=== PATIENT | male | born 1935 | race Caucasian/White ===

== ENCOUNTER → 2016-08-11 | Outpatient (REF) | payer MEDICARE, OTHER ==
[2016-08-11 12:20] LABS: ANION GAP 7 MEQ/L (8-16); BLOOD UREA NITROGEN 17 MG/DL (7-18); CALCIUM LEVEL 8.7 MG/DL (8.8-10.2); CARBON DIOXIDE LEVEL 32 MEQ/L (21-32); CHLORIDE LEVEL 101 MEQ/L (98-107); CREATININE FOR GFR 1.04 MG/DL (0.70-1.30); GLOMERULAR FILTRATION RATE > 60.0 (>42); GLUCOSE, FASTING 142 MG/DL (83-110); POTASSIUM SERUM 3.8 MEQ/L (3.5-5.1); SODIUM LEVEL 140 MEQ/L (136-145)
== END ==
LOC: M SFHCCLAY 07:36
PROVIDERS: ATTEND Family Medicine
DX: E11.9 Type 2 diabetes mellitus without complications (principal); I10 Essential (primary) hypertension; I25.10 Atherosclerotic heart disease of native coronary artery without angina pectoris

== ENCOUNTER → 2016-08-13 | Outpatient (REF) | payer MEDICARE, OTHER ==
[2016-08-13 11:43] LABS: FOLATE > 24.0 NG/ML (>5.4); VITAMIN B12 LEVEL 595 PG/ML (247-911)
== END ==
LOC: M SFHCCLAY 08:45
PROVIDERS: ATTEND Family Medicine
DX: E11.9 Type 2 diabetes mellitus without complications (principal); G63 Polyneuropathy in diseases classified elsewhere

== ENCOUNTER → 2016-08-13 | Outpatient (CLI) | payer MEDICARE, OTHER ==
--- NOTE | 2016-08-13 13:09 | REP ---
LUMBOSACRAL SPINE: Five views of the lumbosacral spine performed. There is no compression fracture. There is no spondylolysis. There is mild anterior spondylolisthesis of L4 and L5 due to posterior facet arthropathy. There is mild to moderate diffuse spurring. There is mild disc space narrowing and subchondral sclerosis at all levels. The posterior elements are intact. IMPRESSION: Diffuse degenerative changes.
== END ==
LOC: M CLY 09:18
PROVIDERS: ATTEND Family Medicine
DX: M51.36 Other intervertebral disc degeneration, lumbar region (principal); E11.9 Type 2 diabetes mellitus without complications; E88.9 Metabolic disorder, unspecified; G63 Polyneuropathy in diseases classified elsewhere; I10 Essential (primary) hypertension

== ENCOUNTER → 2016-10-25 | Outpatient (CLI) | payer MEDICARE, OTHER ==
--- NOTE | 2016-10-25 11:01 | REP ---
CERVICAL SPINE, EIGHT VIEWS: HISTORY: Neck pain. The cervical spine is visualized from C1-2 to C6-7 level in the lateral radiographs. There is no acute fracture. The C3-4 through C6-7 intervertebral discs are decreased in height consistent with disc degeneration. Osteophytes are present on C3-7. There is narrowing of the C3-6 neural foramina secondary to uncinate process hypertrophy. There are 3 mm of anterior subluxation of C4 on 5. This is unchanged with flexion and reduces to 1.5 mm with extension. IMPRESSION: Degenerative change as described above.
== END ==
LOC: M CLY 10:07
PROVIDERS: ATTEND Nurse Practitioner
DX: M50.31 Other cervical disc degeneration, high cervical region (principal); M50.321 Other cervical disc degeneration at C4-C5 level; M50.322 Other cervical disc degeneration at C5-C6 level; M50.323 Other cervical disc degeneration at C6-C7 level; M79.1 Myalgia
CPT/HCPCS: 72050; 82550; 85652; 86431; G0463

== ENCOUNTER → 2016-10-25 | Outpatient (REF) | payer MEDICARE, OTHER | LOC: M SFHCCLAY 09:48 | PROVIDERS: ATTEND Nurse Practitioner | DX: M79.1 Myalgia (principal) ==

== ENCOUNTER → 2016-11-11 | Outpatient (REF) | payer MEDICARE, OTHER | LOC: M SFHCCLAY 15:33 | PROVIDERS: ATTEND Family Medicine | DX: M62.81 Muscle weakness (generalized) (principal) ==

== ENCOUNTER → 2016-11-12 | Outpatient (REF) | payer MEDICARE, OTHER ==
[2016-11-13 14:10] LABS: PSA TOTAL 2.6 ng/mL (0.0-4.0)
[2016-11-17 00:06] LABS: ACETYLCHOLINE RCPTOR BINDING A < 0.03 nmol/L (0.00-0.24)
== END ==
LOC: M SFHCCLAY 07:09
PROVIDERS: ATTEND Family Medicine
DX: M62.81 Muscle weakness (generalized) (principal); Z12.5 Encounter for screening for malignant neoplasm of prostate

== ENCOUNTER → 2016-11-15 | Outpatient (CLI) | payer MEDICARE, OTHER ==
--- NOTE | 2016-11-15 18:28 | REP ---
MRI CERVICAL SPINE WITHOUT CONTRAST: HISTORY: Neck pain. A disc bulge is present at the C2-3 level. There is minimal effacement of the thecal sac without spinal cord compression. The C2 neural foramina are patent. A disc bulge is present at the C3-4 level. There is minimal effacement of the thecal sac without spinal cord compression. Bilateral uncinate process and left facet hypertrophy are present. These findings produce moderate narrowing of the C3 neural foramina. A disc bulge is present at the C4-5 level. There is minimal effacement of the thecal sac without spinal cord compression. Bilateral uncinate process hypertrophy is present. This produces moderate and mild narrowing of the right and left C4 neural foramina respectively. A disc bulge with associated osteophyte formation is present at the C5-6 level. There is mild effacement of the thecal sac without spinal cord compression. Bilateral uncinate process hypertrophy is present. This produces moderate narrowing of the C5 neural foramina. A disc bulge with associated osteophyte formation is present at the C6-7 level. There is mild effacement of the thecal sac without spinal cord compression. Bilateral uncinate process hypertrophy is present. This produces moderate and mild narrowing of the right and left C6 neural foramina respectively. A disc bulge is present at the C7-T1 level. There is mild effacement of the thecal sac without spinal cord compression. The C7 neural foramina are patent. There is no other disc bulge or herniation. The remaining neural foramina are patent. The spinal cord is normal in signal intensity. The C2-3 through C6-7 intervertebral discs are decreased in height consistent with disc degeneration. Normal signal intensity is present in the cervical vertebral bodies. IMPRESSION: There is cervical spondylosis at the C2-3 through C7-T1 levels without spinal cord compression. Signed by Sukhwinder Franco MD 11/15/2016 06:35 P
== END ==
LOC: M RAD 16:26
PROVIDERS: ATTEND Family Medicine
DX: M62.81 Muscle weakness (generalized) (principal); M43.12 Spondylolisthesis, cervical region; M50.21 Other cervical disc displacement, high cervical region

== ENCOUNTER → 2016-11-30 | Outpatient (REF) | payer MEDICARE, OTHER ==
[2016-11-30 15:22] LABS: ALBUMIN 3.7 GM/DL (3.2-5.2); ALBUMIN/GLOBULIN RATIO 1.28 (1.00-1.93); ALKALINE PHOSPHATASE 59 U/L (45-117); ALT/SGPT 25 U/L (12-78); ANION GAP 7 MEQ/L (8-16); AST/SGOT 24 U/L (15-37); BILIRUBIN,TOTAL 0.5 MG/DL (0.2-1.0); BLOOD UREA NITROGEN 20 MG/DL (7-18); CALCIUM LEVEL 8.7 MG/DL (8.8-10.2); CARBON DIOXIDE LEVEL 31 MEQ/L (21-32); CHLORIDE LEVEL 104 MEQ/L (98-107); CREATININE FOR GFR 1.02 MG/DL (0.70-1.30); GLOMERULAR FILTRATION RATE > 60.0 (>42); GLUCOSE, FASTING 131 MG/DL (83-110); POTASSIUM SERUM 3.9 MEQ/L (3.5-5.1); SODIUM LEVEL 142 MEQ/L (136-145); TOTAL PROTEIN 6.6 GM/DL (6.4-8.2)
[2016-12-02 12:09] LABS: ALBUMIN 3.96 GM/DL (3.29-5.55); GAMMA GLOBULIN % 13.6 % (11.1-18.8)
[2016-12-03 14:14] LABS: VITAMIN E LEVEL 12.5 mg/L (5.3-17.5)
== END ==
LOC: M LABDRAWC 13:19
PROVIDERS: ATTEND Psychiatry & Neurology Neurology
DX: G62.9 Polyneuropathy, unspecified (principal); R20.2 Paresthesia of skin; R53.1 Weakness

== ENCOUNTER → 2016-12-22 | Outpatient (REF) | payer MEDICARE, OTHER ==
[2016-12-26 00:06] LABS: Lyme Disease IgG Ab 18 kDa Ban Present (.); Lyme Disease IgG Ab 23 kDa Ban Present (.); Lyme Disease IgG Ab 28 kDa Ban Present (.); Lyme Disease IgG Ab 30 kDa Ban Present (.); Lyme Disease IgG Ab 39 kDa Ban Present (.); Lyme Disease IgG Ab 41 kDa Ban Present (.); Lyme Disease IgG Ab 45 kDa Ban Present (.); Lyme Disease IgG Ab 58 kDa Ban Present (.); Lyme Disease IgG Ab 66 kDa Ban Present (.); Lyme Disease IgG Ab 93 kDa Ban Present (.); Lyme Disease IgG West Blot Int Positive (.); Lyme Disease IgG/IgM Antibodie 5.51 ISR (0.00-0.90); Lyme Disease IgM Ab 23 kDa Ban Present (.); Lyme Disease IgM Ab 39 kDa Ban Absent (.); Lyme Disease IgM Ab 41 kDa Ban Absent (.); Lyme Disease IgM Ab Quantitati <0.80 index (0.00-0.79); Lyme Disease IgM West Blot Int Negative (.)
== END ==
LOC: M SFHCCLAY 13:32
PROVIDERS: ATTEND Family Medicine
DX: Z20.9 Contact with and (suspected) exposure to unspecified communicable disease (principal)
CPT/HCPCS: 86617; G0463

== ENCOUNTER → 2017-01-27 | Outpatient (CLI) | payer MEDICARE, OTHER ==
--- NOTE | 2017-01-27 13:58 | REP ---
BILATERAL LOWER EXTREMITY DUPLEX DOPPLER VENOUS ULTRASOUND WITH BILATERAL EVALUATION FOR VENOUS REFLUX: Real-time compression and duplex Doppler interrogation of bilateral lower extremity deep venous systems is performed. Bilaterally, common femoral, superficial femoral and popliteal veins are fully compressible with transducer pressure and demonstrate normal spontaneous and phasic flow without evidence of deep venous thrombosis. Evaluation for venous reflux on the right demonstrates reflux throughout the deep vein system. There is an anterior accessory greater saphenous vein present without reflux. There is reflux in the greater saphenous vein at the saphenofemoral junction, which measures 4 mm in diameter, duration is 4.9 seconds. There is reflux in the greater saphenous vein at the mid thigh level with diameter 2 mm, duration 4.8 seconds. There is reflux in the greater saphenous of the knee, which measures 2 mm, duration 1.4 seconds. There is no reflux in the lesser saphenous vein with a diameter of 3 mm. Evaluation of reflux in the left lower extremity demonstrates reflux in the common femoral vein and popliteal vein but not in the superficial femoral vein. There is an anterior accessory greater saphenous vein present without reflux. There is reflux in the greater saphenous vein at the saphenofemoral junction, which measures 5 mm, duration is 3.9 seconds. There is reflux in the greater saphenous vein at the mid thigh level AP diameter 5 mm, duration is 4.9 seconds, there is on reflux in the greater saphenous vein at the knee with a diameter of 3 mm. There is no reflux in the lesser saphenous vein with a diameter of 2 mm. Signed by Keith Jones MD 01/27/2017 05:35 P
== END ==
LOC: M RAD 10:49
PROVIDERS: ATTEND Surgery Vascular Surgery
DX: I87.2 Venous insufficiency (chronic) (peripheral) (principal); I73.9 Peripheral vascular disease, unspecified

== ENCOUNTER → 2017-09-01 | Outpatient (REF) | payer MEDICARE, OTHER ==
[2017-09-01 12:43] LABS: ALT/SGPT 17 U/L (12-78); ANION GAP 6 MEQ/L (8-16); BLOOD UREA NITROGEN 16 MG/DL (7-18); CALCIUM LEVEL 8.4 MG/DL (8.8-10.2); CARBON DIOXIDE LEVEL 31 MEQ/L (21-32); CHLORIDE LEVEL 102 MEQ/L (98-107); CHOLESTEROL LEVEL 216 MG/DL (<200); CHOLESTEROL RISK RATIO 6.171 (<5); CREATININE FOR GFR 0.89 MG/DL (0.70-1.30); GLOMERULAR FILTRATION RATE > 60.0 (>42); GLUCOSE, FASTING 113 MG/DL (70-100); HDL CHOLESTEROL 35 MG/DL (>40); NON-HDL-C 181 MG/DL; POTASSIUM SERUM 4.2 MEQ/L (3.5-5.1); SODIUM LEVEL 139 MEQ/L (136-145); TRIGLYCERIDES LEVEL 190 MG/DL (<150)
[2017-09-01 13:12] LABS: ESTIMATED AVERAGE GLUCOSE 123 MG/DL (60-110); HEMOGLOBIN A1c 5.9 %
== END ==
LOC: M SFHCCLAY 08:41
DX: E11.40 Type 2 diabetes mellitus with diabetic neuropathy, unspecified (principal)
CPT/HCPCS: 84460

== ENCOUNTER → 2018-01-12 | Outpatient (REF) | payer MEDICARE, OTHER ==
[2018-01-12 12:02] LABS: ESTIMATED AVERAGE GLUCOSE 134 MG/DL (60-110); HEMOGLOBIN A1c 6.3 %
[2018-01-12 12:23] LABS: ALBUMIN 3.8 GM/DL (3.2-5.2); ALBUMIN/GLOBULIN RATIO 1.46 (1.00-1.93); ALKALINE PHOSPHATASE 46 U/L (45-117); ALT/SGPT 17 U/L (12-78); ANION GAP 9 MEQ/L (8-16); AST/SGOT 14 U/L (7-37); BILIRUBIN,TOTAL 0.6 MG/DL (0.2-1.0); BLOOD UREA NITROGEN 22 MG/DL (7-18); CALCIUM LEVEL 8.7 MG/DL (8.8-10.2); CARBON DIOXIDE LEVEL 31 MEQ/L (21-32); CHLORIDE LEVEL 102 MEQ/L (98-107); CHOLESTEROL LEVEL 128 MG/DL (<200); CHOLESTEROL RISK RATIO 3.657 (<5); GLOMERULAR FILTRATION RATE > 60.0 (>35); GLUCOSE, FASTING 116 MG/DL (70-100); HDL CHOLESTEROL 35 MG/DL (>40); LDL CHOLESTEROL 62 MG/DL (<100); NON-HDL-C 93 MG/DL; POTASSIUM SERUM 4.2 MEQ/L (3.5-5.1); SODIUM LEVEL 142 MEQ/L (136-145); TOTAL PROTEIN 6.4 GM/DL (6.4-8.2); TRIGLYCERIDES LEVEL 154 MG/DL (<150)
== END ==
LOC: M SFHCCLAY 07:25
DX: E11.40 Type 2 diabetes mellitus with diabetic neuropathy, unspecified (principal)
CPT/HCPCS: 80053

== ENCOUNTER → 2018-01-19 | Outpatient (CLI) | payer MEDICARE, OTHER | LOC: M CLY 10:17 | DX: M79.652 Pain in left thigh (principal); M16.12 Unilateral primary osteoarthritis, left hip | CPT/HCPCS: 73502 ==

== ENCOUNTER → 2018-01-27 | Outpatient (CLI) | payer MEDICARE, OTHER | LOC: M RAD 16:50 | DX: M48.061 Spinal stenosis, lumbar region without neurogenic claudication (principal) | CPT/HCPCS: 72148 ==

== ENCOUNTER → 2018-08-01 | Outpatient (REF) | payer MEDICARE, OTHER ==
[2018-08-02 12:28] LABS: BLOOD UREA NITROGEN 16 MG/DL (7-18); CALCIUM LEVEL 8.9 MG/DL (8.8-10.2); CARBON DIOXIDE LEVEL 27 MEQ/L (21-32); CHLORIDE LEVEL 105 MEQ/L (98-107); CREATININE FOR GFR 0.86 MG/DL (0.70-1.30); GLOMERULAR FILTRATION RATE > 60.0 (>35); GLUCOSE, FASTING 111 MG/DL (70-100); POTASSIUM SERUM 4.2 MEQ/L (3.5-5.1); SODIUM LEVEL 142 MEQ/L (136-145)
[2018-08-02 12:59] LABS: HEMOGLOBIN A1c 6.7 %
== END ==
LOC: M SFHCCLAY 14:25
PROVIDERS: ATTEND Family Medicine
DX: L03.818 Cellulitis of other sites (principal); E11.40 Type 2 diabetes mellitus with diabetic neuropathy, unspecified
CPT/HCPCS: 80048; 83036; G0463

== ENCOUNTER → 2018-10-23 | Outpatient (REF) | payer MEDICARE, OTHER | LOC: M LABSMT 13:26 | PROVIDERS: ATTEND Urology Pediatric Urology | DX: N48.5 Ulcer of penis (principal) ==

== ENCOUNTER → 2018-10-23 | Outpatient (CLI) | payer MEDICARE, OTHER ==
[2018-10-25 00:06] LABS: HSV IgM TYPES 1&2 <0.91 Ratio (0.00-0.90)
== END ==
LOC: M SMT 09:54
PROVIDERS: ATTEND Urology Pediatric Urology
DX: N48.5 Ulcer of penis (principal)
CPT/HCPCS: 36415; 86694; G0463

== ENCOUNTER → 2019-01-09 | Outpatient (REF) | payer MEDICARE, OTHER ==
[2019-01-09 17:10] LABS: ALBUMIN 3.8 GM/DL (3.2-5.2); ALT/SGPT 17 U/L (12-78); BILIRUBIN,TOTAL 0.9 MG/DL (0.2-1.0); BLOOD UREA NITROGEN 18 MG/DL (7-18); CARBON DIOXIDE LEVEL 32 MEQ/L (21-32); CHLORIDE LEVEL 99 MEQ/L (98-107); CHOLESTEROL LEVEL 136 MG/DL (<200); CREATININE FOR GFR 1.03 MG/DL (0.70-1.30); GLOMERULAR FILTRATION RATE > 60.0 (>35); GLUCOSE, FASTING 121 MG/DL (70-100); HDL CHOLESTEROL 40 MG/DL (>40); LDL CHOLESTEROL 66 MG/DL (<100); NON-HDL-C 96 MG/DL; POTASSIUM SERUM 4.1 MEQ/L (3.5-5.1); SODIUM LEVEL 137 MEQ/L (136-145); TOTAL PROTEIN 6.6 GM/DL (6.4-8.2); TRIGLYCERIDES LEVEL 148 MG/DL (<150)
[2019-01-09 17:12] LABS: HEMATOCRIT 45.7 % (42.0-52.0); HEMOGLOBIN 15.2 g/dl (13.5-17.5); MEAN CORPUSCULAR HGB CONC 33.3 g/dl (32.0-36.5); MEAN CORPUSCULAR VOLUME 93.1 fl (80.0-96.0); PLATELET COUNT, AUTOMATED 190 10^3/uL (150-450); RED BLOOD COUNT 4.91 10^6/uL (4.30-6.10); WHITE BLOOD COUNT 7.2 10^3/uL (4.0-10.0)
[2019-01-09 17:26] LABS: CREATININE, URINE 99.8 MG/DL; MALB URINE SIEMENS 6.4 MG/L; MAU/CREAT RATIO 6.4 MCG/MG (0.0-30.0)
== END ==
LOC: M SFHCCLAY 10:20
PROVIDERS: ATTEND Family Medicine
DX: E11.9 Type 2 diabetes mellitus without complications (principal); G63 Polyneuropathy in diseases classified elsewhere; I25.10 Atherosclerotic heart disease of native coronary artery without angina pectoris; I77.810 Thoracic aortic ectasia

== ENCOUNTER → 2020-01-17 | Outpatient (REF) | payer MEDICARE, OTHER ==
[2020-01-17 16:17] LABS: APPEARANCE, URINE CLEAR (CLEAR); BACTERIA, URINE AUTO NEGATIVE (NEGATIVE); BILIRUBIN, URINE AUTO NEGATIVE (NEGATIVE); BLOOD, URINE BLOOD NEGATIVE (NEGATIVE); COLOR, URINE YELLOW (YELLOW); GLUCOSE, URINE (UA) AUTO NEGATIVE (NEGATIVE); HEMOGLOBIN A1c 6.1 %; KETONE, URINE AUTO NEGATIVE (NEGATIVE); LEUKOCYTE ESTERASE, URINE AUTO NEGATIVE (NEGATIVE); NITRITE, URINE AUTO NEGATIVE (NEGATIVE); PROTEIN, URINE AUTO NEGATIVE (NEGATIVE); RBC, URINE AUTO 1 /HPF (0-3); SPECIFIC GRAVITY URINE AUTO 1.011 (1.002-1.035); SQUAMOUS EPITHELIAL CELL UR AU 0 /HPF (0-6); UROBILINOGEN, URINE AUTO 0.2 mg/dL (0.0-2.0); WBC, URINE AUTO 0 /HPF (0-3)
[2020-01-17 16:29] LABS: ALT/SGPT 14 U/L (12-78); BILIRUBIN,TOTAL 0.7 MG/DL (0.2-1.0); BLOOD UREA NITROGEN 20 MG/DL (7-18); CARBON DIOXIDE LEVEL 32 MEQ/L (21-32); CHLORIDE LEVEL 101 MEQ/L (98-107); CHOLESTEROL LEVEL 138 MG/DL (<200); CREATININE FOR GFR 0.88 MG/DL (0.70-1.30); GLOMERULAR FILTRATION RATE > 60.0 (>35); GLUCOSE, FASTING 116 MG/DL (70-100); HDL CHOLESTEROL 40 MG/DL (>40); LDL CHOLESTEROL 73 MG/DL (<100); NON-HDL-C 98 MG/DL; POTASSIUM SERUM 4.1 MEQ/L (3.5-5.1); SODIUM LEVEL 136 MEQ/L (136-145); TRIGLYCERIDES LEVEL 125 MG/DL (<150)
[2020-01-17 16:30] LABS: ALBUMIN 3.5 GM/DL (3.2-5.2); TOTAL PROTEIN 6.6 GM/DL (6.4-8.2)
[2020-01-17 16:40] LABS: CREATININE, URINE 59.1 MG/DL; MALB URINE SIEMENS < 5.0 MG/L; MAU/CREAT RATIO 8.4 MCG/MG (0.0-30.0)
== END ==
LOC: M SFHCCLAY 10:37
PROVIDERS: ATTEND Family Medicine
DX: E11.40 Type 2 diabetes mellitus with diabetic neuropathy, unspecified (principal)
CPT/HCPCS: 80053; 80061; 81001; 82043; 83036; G8483

== ENCOUNTER → 2020-08-15 | Outpatient (REF) | payer MEDICARE, OTHER ==
[2020-08-15 17:18] LABS: ALBUMIN 3.8 GM/DL (3.2-5.2); ALT/SGPT 19 U/L (12-78); BILIRUBIN,TOTAL 0.6 MG/DL (0.2-1.0); BLOOD UREA NITROGEN 18 MG/DL (7-18); CALCIUM LEVEL 9.3 MG/DL (8.8-10.2); CARBON DIOXIDE LEVEL 32 MEQ/L (21-32); CHLORIDE LEVEL 101 MEQ/L (98-107); CHOLESTEROL LEVEL 160 MG/DL (<200); GLOMERULAR FILTRATION RATE > 60.0 (>35); GLUCOSE, FASTING 120 MG/DL (70-100); HDL CHOLESTEROL 43 MG/DL (>40); LDL CHOLESTEROL 80 MG/DL (<100); NON-HDL-C 117 MG/DL; POTASSIUM SERUM 4.3 MEQ/L (3.5-5.1); SODIUM LEVEL 139 MEQ/L (136-145); TOTAL PROTEIN 6.5 GM/DL (6.4-8.2); TRIGLYCERIDES LEVEL 186 MG/DL (<150); VITAMIN B12 LEVEL 922 PG/ML (247-911)
[2020-08-15 17:19] LABS: HEMOGLOBIN A1c 6.1 %
== END ==
LOC: M SFHCCLAY 10:36
PROVIDERS: ATTEND Family Medicine
DX: E53.8 Deficiency of other specified B group vitamins (principal); I25.10 Atherosclerotic heart disease of native coronary artery without angina pectoris; I10 Essential (primary) hypertension; E11.40 Type 2 diabetes mellitus with diabetic neuropathy, unspecified
CPT/HCPCS: 80053; 80061; 82607; 83036; G0463

== ENCOUNTER → 2020-09-02 | Outpatient (REF) | payer MEDICARE, OTHER ==
[2020-09-03 12:59] LABS: FREE T4 1.19 NG/DL (0.76-1.46); THYROID STIMULATING HORMONE 2.11 uIU/ML (0.358-3.740)
== END ==
LOC: M SFHCCLAY 14:18
PROVIDERS: ATTEND Physician Assistant
DX: F41.8 Other specified anxiety disorders (principal)
CPT/HCPCS: 84439; 84443; G0463

== ENCOUNTER → 2021-01-15 | Outpatient (REF) | payer MEDICARE, OTHER ==
[2021-01-15 12:39] LABS: CHOLESTEROL RISK RATIO 3.674 (<5)
[2021-01-15 14:16] LABS: ALBUMIN 3.6 GM/DL (3.2-5.2); ALT/SGPT 20 U/L (12-78); BILIRUBIN,TOTAL 0.7 MG/DL (0.2-1.0); BLOOD UREA NITROGEN 24 MG/DL (7-18); CALCIUM LEVEL 9.1 MG/DL (8.8-10.2); CARBON DIOXIDE LEVEL 31 MEQ/L (21-32); CHLORIDE LEVEL 99 MEQ/L (98-107); CREATININE FOR GFR 1.02 MG/DL (0.70-1.30); GLOMERULAR FILTRATION RATE > 60.0 (>35); GLUCOSE, FASTING 119 MG/DL (70-100); SODIUM LEVEL 137 MEQ/L (136-145); TOTAL PROTEIN 6.3 GM/DL (6.4-8.2)
[2021-01-15 15:35] LABS: MALB URINE SIEMENS 7.7 MG/L; MAU/CREAT RATIO 5.9 MCG/MG (0.0-30.0)
== END ==
LOC: M SFHCCLAY 08:59
PROVIDERS: ATTEND Family Medicine
DX: I25.10 Atherosclerotic heart disease of native coronary artery without angina pectoris (principal); E11.40 Type 2 diabetes mellitus with diabetic neuropathy, unspecified
CPT/HCPCS: 80053; 80061; 82043; 83036; 84443; G0463

== ENCOUNTER → 2021-08-06 | Outpatient (REF) | payer MEDICARE, OTHER ==
[2021-08-06 11:37] LABS: APPEARANCE, URINE CLEAR (CLEAR); BACTERIA, URINE AUTO NEGATIVE (NEGATIVE); BILIRUBIN, URINE AUTO NEGATIVE (NEGATIVE); BLOOD, URINE BLOOD NEGATIVE (NEGATIVE); COLOR, URINE YELLOW (YELLOW); GLUCOSE, URINE (UA) AUTO NEGATIVE (NEGATIVE); KETONE, URINE AUTO NEGATIVE (NEGATIVE); LEUKOCYTE ESTERASE, URINE AUTO NEGATIVE (NEGATIVE); MUCUS, URINE SMALL (NEGATIVE); NITRITE, URINE AUTO NEGATIVE (NEGATIVE); PROTEIN, URINE AUTO NEGATIVE (NEGATIVE); RBC, URINE AUTO 0 /HPF (0-3); SPECIFIC GRAVITY URINE AUTO 1.023 (1.002-1.035); SQUAMOUS EPITHELIAL CELL UR AU 0 /HPF (0-6); UROBILINOGEN, URINE AUTO 0.2 mg/dL (0.0-2.0); WBC, URINE AUTO 0 /HPF (0-3)
[2021-08-06 11:39] LABS: BASO # 0.1 10^3/uL (0.0-0.2); BASO % 0.9 % (0.0-1.0); EOS # 0.3 10^3/uL (0.0-0.5); EOS % 3.3 % (0.0-3.0); HEMOGLOBIN 14.6 g/dl (13.5-17.5); LYMPH # 1.9 10^3/uL (1.5-5.0); MEAN CORPUSCULAR HEMOGLOBIN 30.9 pg (27.0-33.0); MEAN CORPUSCULAR VOLUME 90.9 fl (80.0-96.0); MONO # 0.9 10^3/uL (0.0-0.8); MONO % 8.3 % (2.0-8.0); PLATELET COUNT, AUTOMATED 204 10^3/uL (150-450); RED BLOOD COUNT 4.73 10^6/uL (4.30-6.10); WHITE BLOOD COUNT 10.2 10^3/uL (4.0-10.0)
[2021-08-06 11:59] LABS: ERYTHROCYTE SEDIMENTATION RATE 4 mm/hr (0-20)
[2021-08-06 12:10] LABS: ALBUMIN 3.9 GM/DL (3.2-5.2); ALT/SGPT 25 U/L (12-78); BILIRUBIN,TOTAL 0.7 MG/DL (0.2-1.0); BLOOD UREA NITROGEN 23 MG/DL (7-18); CALCIUM LEVEL 8.6 MG/DL (8.8-10.2); CARBON DIOXIDE LEVEL 32 MEQ/L (21-32); CHLORIDE LEVEL 102 MEQ/L (98-107); CHOLESTEROL LEVEL 158 MG/DL (<200); CREATININE FOR GFR 0.93 MG/DL (0.70-1.30); GLOMERULAR FILTRATION RATE > 60.0 (>35); GLUCOSE, FASTING 122 MG/DL (70-100); HDL CHOLESTEROL 40 MG/DL (>40); LDL CHOLESTEROL 85 MG/DL (<100); NON-HDL-C 118 MG/DL; POTASSIUM SERUM 3.9 MEQ/L (3.5-5.1); SODIUM LEVEL 138 MEQ/L (136-145); TOTAL PROTEIN 6.7 GM/DL (6.4-8.2); TRIGLYCERIDES LEVEL 165 MG/DL (<150)
[2021-08-06 12:17] LABS: MAU/CREAT RATIO 6.9 MCG/MG (0.0-30.0)
== END ==
LOC: M SFHCCLAY 08:49
PROVIDERS: ATTEND Family Medicine
DX: I25.10 Atherosclerotic heart disease of native coronary artery without angina pectoris (principal); E11.40 Type 2 diabetes mellitus with diabetic neuropathy, unspecified

== ENCOUNTER → 2021-12-18 | Outpatient (CLI) | payer MEDICARE, OTHER | LOC: M CLY 11:00 | PROVIDERS: ATTEND Family Medicine | DX: R10.32 Left lower quadrant pain (principal) ==

== ENCOUNTER → 2021-12-21 | Outpatient (REF) | payer MEDICARE, OTHER | LOC: M SFHCCLAY 07:15 | PROVIDERS: ATTEND Family Medicine | DX: I25.10 Atherosclerotic heart disease of native coronary artery without angina pectoris (principal) ==

== ENCOUNTER → 2022-08-06 | Outpatient (REF) | payer MEDICARE, OTHER ==
[2022-08-06 17:19] LABS: APPEARANCE, URINE CLEAR (CLEAR); BACTERIA, URINE AUTO NEGATIVE (NEGATIVE); BILIRUBIN, URINE AUTO NEGATIVE (NEGATIVE); BLOOD, URINE BLOOD NEGATIVE (NEGATIVE); COLOR, URINE YELLOW (YELLOW); GLUCOSE, URINE (UA) AUTO NEGATIVE (NEGATIVE); KETONE, URINE AUTO NEGATIVE (NEGATIVE); LEUKOCYTE ESTERASE, URINE AUTO NEGATIVE (NEGATIVE); NITRITE, URINE AUTO NEGATIVE (NEGATIVE); PROTEIN, URINE AUTO NEGATIVE (NEGATIVE); RBC, URINE AUTO 0 /HPF (0-3); SPECIFIC GRAVITY URINE AUTO 1.017 (1.002-1.035); SQUAMOUS EPITHELIAL CELL UR AU 0 /HPF (0-6); UROBILINOGEN, URINE AUTO 0.2 mg/dL (0.0-2.0); WBC, URINE AUTO 0 /HPF (0-3)
[2022-08-06 17:23] LABS: HEMATOCRIT 42.8 % (42.0-52.0); HEMOGLOBIN 14.2 g/dl (13.5-17.5); MEAN CORPUSCULAR HEMOGLOBIN 30.8 pg (27.0-33.0); MEAN CORPUSCULAR HGB CONC 33.2 g/dl (32.0-36.5); MEAN CORPUSCULAR VOLUME 92.8 fl (80.0-96.0); PLATELET COUNT, AUTOMATED 173 10^3/uL (150-450); RED BLOOD COUNT 4.61 10^6/uL (4.30-6.10); WHITE BLOOD COUNT 8.4 10^3/uL (4.0-10.0)
[2022-08-06 17:43] LABS: HEMOGLOBIN A1c 6.1 % (4.0-6.0)
[2022-08-06 17:53] LABS: ALBUMIN 3.7 G/DL (3.2-5.2); ALKALINE PHOSPHATASE 60 U/L (46-116); ALT/SGPT 17 U/L (7.0-40); AST/SGOT 19 U/L (<34); BILIRUBIN,TOTAL 0.7 MG/DL (0.3-1.2); BLOOD UREA NITROGEN 18 MG/DL (9-23); CALCIUM LEVEL 8.8 MG/DL (8.3-10.6); CARBON DIOXIDE LEVEL 32 MMOL/L (20-31); CHLORIDE LEVEL 101 MMOL/L (98-107); CHOLESTEROL LEVEL 146 MG/DL (<200); CHOLESTEROL RISK RATIO 3.84 (<5); CPK CREATINE PHOSPHOKINASE 75 U/L (46-171); CREATININE FOR GFR 0.94 MG/DL (0.70-1.30); FREE T4 1.28 NG/DL (0.89-1.76); GLOMERULAR FILTRATION RATE > 60.0 (>35); GLUCOSE, FASTING 116 MG/DL (74-106); LDL CHOLESTEROL 79.6 MG/DL (<100); POTASSIUM SERUM 4.5 MMOL/L (3.5-5.1); SODIUM LEVEL 139 MMOL/L (136-145); THYROID STIMULATING HORMONE 1.689 uIU/ML (0.55-4.78); TOTAL PROTEIN 6.3 G/DL (5.7-8.2); TRIGLYCERIDES LEVEL 142 MG/DL (<150)
== END ==
LOC: M SFHCCLAY 09:46
PROVIDERS: ATTEND Family Medicine
DX: I25.10 Atherosclerotic heart disease of native coronary artery without angina pectoris (principal); I10 Essential (primary) hypertension; E11.40 Type 2 diabetes mellitus with diabetic neuropathy, unspecified

== ENCOUNTER → 2023-01-27 | Outpatient (REF) | payer MEDICARE, OTHER ==
[2023-01-27 17:25] LABS: APPEARANCE, URINE CLEAR (CLEAR); BACTERIA, URINE AUTO NEGATIVE (NEGATIVE); BILIRUBIN, URINE AUTO NEGATIVE (NEGATIVE); BLOOD, URINE BLOOD NEGATIVE (NEGATIVE); COLOR, URINE YELLOW (YELLOW); GLUCOSE, URINE (UA) AUTO NEGATIVE (NEGATIVE); KETONE, URINE AUTO NEGATIVE (NEGATIVE); LEUKOCYTE ESTERASE, URINE AUTO NEGATIVE (NEGATIVE); NITRITE, URINE AUTO NEGATIVE (NEGATIVE); PROTEIN, URINE AUTO NEGATIVE (NEGATIVE); RBC, URINE AUTO 0 /HPF (0-3); SPECIFIC GRAVITY URINE AUTO 1.024 (1.002-1.035); SQUAMOUS EPITHELIAL CELL UR AU 1 /HPF (0-6); WBC, URINE AUTO 0 /HPF (0-3)
== END ==
LOC: M SFHCCLAY 10:02
PROVIDERS: ATTEND Family Medicine
DX: M79.10 Myalgia, unspecified site (principal); Z12.5 Encounter for screening for malignant neoplasm of prostate; R35.0 Frequency of micturition
CPT/HCPCS: 81001; 85652; 86038; 86200; 86431; 86618; G0103

== ENCOUNTER → 2023-08-05 | Outpatient (REF) | payer MEDICARE, OTHER ==
[2023-08-05 17:54] LABS: BASO # 0.1 10^3/uL (0.0-0.2); BASO % 0.6 % (0.0-1.0); EOS # 0.3 10^3/uL (0.0-0.5); EOS % 3.3 % (0.0-3.0); HEMATOCRIT 40.5 % (42.0-52.0); HEMOGLOBIN 13.2 g/dl (13.5-17.5); LYMPH # 1.5 10^3/uL (1.5-5.0); LYMPH % 15.7 % (24.0-44.0); MEAN CORPUSCULAR HEMOGLOBIN 29.6 pg (27.0-33.0); MEAN CORPUSCULAR HGB CONC 32.6 g/dl (32.0-36.5); MEAN CORPUSCULAR VOLUME 90.8 fl (80.0-96.0); MONO # 0.9 10^3/uL (0.0-0.8); MONO % 9.2 % (2.0-8.0); NEUTROPHILS # 6.8 10^3/uL (1.5-8.5); NEUTROPHILS % 70.7 % (36.0-66.0); PLATELET COUNT, AUTOMATED 306 10^3/uL (150-450); RED BLOOD COUNT 4.46 10^6/uL (4.30-6.10); WHITE BLOOD COUNT 9.6 10^3/uL (4.0-10.0)
[2023-08-05 18:02] LABS: ERYTHROCYTE SEDIMENTATION RATE 31 mm/hr (0-20)
[2023-08-05 18:03] LABS: HEMOGLOBIN A1c 6.2 % (4.0-6.0)
[2023-08-05 18:16] LABS: ALBUMIN 3.3 G/DL (3.2-5.2); ALKALINE PHOSPHATASE 70 U/L (46-116); ALT/SGPT 13 U/L (7.0-40); AST/SGOT 13 U/L (<34); BILIRUBIN,TOTAL 0.6 MG/DL (0.3-1.2); BLOOD UREA NITROGEN 22 MG/DL (9-23); CALCIUM LEVEL 9.2 MG/DL (8.3-10.6); CARBON DIOXIDE LEVEL 32 MMOL/L (20-31); CHLORIDE LEVEL 98 MMOL/L (98-107); CHOLESTEROL LEVEL 132 MG/DL (<200); CHOLESTEROL RISK RATIO 4.27 (<5); CREATININE FOR GFR 0.78 MG/DL (0.70-1.30); GLOMERULAR FILTRATION RATE > 60.0 (>35); GLUCOSE, FASTING 132 MG/DL (74-106); HDL CHOLESTEROL 30.9 MG/DL (>40); LDL CHOLESTEROL 75.9 MG/DL (<100); NON-HDL-C 101.1 MG/DL; POTASSIUM SERUM 4.5 MMOL/L (3.5-5.1); SODIUM LEVEL 134 MMOL/L (136-145); TOTAL PROTEIN 6.2 G/DL (5.7-8.2); TRIGLYCERIDES LEVEL 126 MG/DL (<150)
[2023-08-08 23:18] LABS: PSA % FREE 12.5 % (.); PSA FREE 0.95 ng/mL; PSA TOTAL 7.6 ng/mL (0.0-4.0)
== END ==
LOC: M SFHCCLAY 07:56
PROVIDERS: ATTEND Physician Assistant
DX: R97.20 Elevated prostate specific antigen [PSA] (principal); I25.10 Atherosclerotic heart disease of native coronary artery without angina pectoris; E11.40 Type 2 diabetes mellitus with diabetic neuropathy, unspecified; G63 Polyneuropathy in diseases classified elsewhere

== ENCOUNTER → 2023-08-08 | Outpatient (REF) | payer MEDICARE, OTHER | LOC: M LABDRAWC 17:35 | PROVIDERS: ATTEND Nurse Practitioner Acute Care | DX: I25.10 Atherosclerotic heart disease of native coronary artery without angina pectoris (principal); I71.21 Aneurysm of the ascending aorta, without rupture; E11.9 Type 2 diabetes mellitus without complications ==

== ENCOUNTER → 2023-08-23 | Outpatient (REF) | payer MEDICARE, OTHER ==
[2023-08-23 12:13] LABS: BASO # 0.1 10^3/uL (0.0-0.2); BASO % 0.5 % (0.0-1.0); EOS # 0.3 10^3/uL (0.0-0.5); EOS % 2.7 % (0.0-3.0); HEMATOCRIT 39.9 % (42.0-52.0); LYMPH # 1.4 10^3/uL (1.5-5.0); LYMPH % 15.5 % (24.0-44.0); MEAN CORPUSCULAR HGB CONC 32.6 g/dl (32.0-36.5); MEAN CORPUSCULAR VOLUME 91.9 fl (80.0-96.0); MONO # 0.9 10^3/uL (0.0-0.8); MONO % 9.3 % (2.0-8.0); NEUTROPHILS # 6.6 10^3/uL (1.5-8.5); NEUTROPHILS % 71.6 % (36.0-66.0); PLATELET COUNT, AUTOMATED 230 10^3/uL (150-450); RED BLOOD COUNT 4.34 10^6/uL (4.30-6.10); WHITE BLOOD COUNT 9.2 10^3/uL (4.0-10.0)
[2023-08-23 12:27] LABS: ERYTHROCYTE SEDIMENTATION RATE 20 mm/hr (0-20)
[2023-08-23 12:39] LABS: URIC ACID 5.2 MG/DL (3.7-9.2)
[2023-08-23 12:42] LABS: ALBUMIN 3.2 G/DL (3.2-5.2); ALKALINE PHOSPHATASE 66 U/L (46-116); ALT/SGPT 11 U/L (7.0-40); AST/SGOT 10 U/L (<34); BILIRUBIN,TOTAL 0.4 MG/DL (0.3-1.2); BLOOD UREA NITROGEN 22 MG/DL (9-23); CALCIUM LEVEL 8.9 MG/DL (8.3-10.6); CARBON DIOXIDE LEVEL 30 MMOL/L (20-31); CHLORIDE LEVEL 100 MMOL/L (98-107); CPK CREATINE PHOSPHOKINASE 26 U/L (46-171); CREATININE FOR GFR 0.83 MG/DL (0.70-1.30); GLOMERULAR FILTRATION RATE > 60.0 (>35); GLUCOSE, FASTING 186 MG/DL (74-106); POTASSIUM SERUM 4.2 MMOL/L (3.5-5.1); RHEUMATOID FACTOR QUANT < 3.5 IU/ML (<14); SODIUM LEVEL 137 MMOL/L (136-145)
[2023-08-23 12:43] LABS: FREE T4 1.35 NG/DL (0.89-1.76); THYROID STIMULATING HORMONE 2.158 uIU/ML (0.55-4.78)
[2023-08-23 15:14] LABS: LDH LACTATE DEHYDROGENASE 141 U/L (120-246)
[2023-08-23 15:15] LABS: IRON (FE) 49 UG/DL (65-175)
[2023-08-23 15:17] LABS: VITAMIN B12 LEVEL 966 PG/ML (211-911)
== END ==
LOC: M SFHCCLAY 08:24
PROVIDERS: ATTEND Physician Assistant
DX: M79.10 Myalgia, unspecified site (principal); D64.9 Anemia, unspecified

== ENCOUNTER → 2023-09-16 | Outpatient (REF) | payer MEDICARE, OTHER ==
[~2023-09-16] MED LIST: ACET-897 PO; ATOR1TAB19 PO; B-12100010 PO; C 50TAB PO; CARV3.12 PO; CHLO125TA PO; DULO1CAP5 PO; ELIQ5TAB PO; IRON65TA2 PO; LOSA50TA28 PO; MELO7.5T35 PO; METF-838 PO; MOTR200T44 PO; OMEP40CA5 PO; TADA20TA PO; THERTAB52 PO; TIZA2TA PO
== END ==
LOC: M LABSMT 09:39
PROVIDERS: ATTEND Urology
DX: C61 Malignant neoplasm of prostate (principal); R97.20 Elevated prostate specific antigen [PSA]; Z79.899 Other long term (current) drug therapy; Z80.3 Family history of malignant neoplasm of breast; Z82.49 Family history of ischemic heart disease and other diseases of the circulatory system; Z88.0 Allergy status to penicillin

== ENCOUNTER → 2023-09-29 | Outpatient (REF) | payer MEDICARE, OTHER | LOC: M SFHCCLAY 12:30 | PROVIDERS: ATTEND Family Medicine | DX: C61 Malignant neoplasm of prostate (principal); D50.9 Iron deficiency anemia, unspecified; I48.0 Paroxysmal atrial fibrillation ==

== ENCOUNTER → 2023-09-30 | Outpatient (REF) | payer MEDICARE, OTHER ==
[2023-09-30 11:29] LABS: HEMATOCRIT 38.6 % (42.0-52.0); HEMOGLOBIN 12.6 g/dl (13.5-17.5); MEAN CORPUSCULAR HEMOGLOBIN 30.1 pg (27.0-33.0); MEAN CORPUSCULAR HGB CONC 32.6 g/dl (32.0-36.5); MEAN CORPUSCULAR VOLUME 92.3 fl (80.0-96.0); PLATELET COUNT, AUTOMATED 257 10^3/uL (150-450); RED BLOOD COUNT 4.18 10^6/uL (4.30-6.10)
[2023-09-30 12:02] LABS: ALKALINE PHOSPHATASE 58 U/L (46-116); ALT/SGPT 16 U/L (7.0-40); AST/SGOT 16 U/L (<34); BILIRUBIN,TOTAL 0.3 MG/DL (0.3-1.2); BLOOD UREA NITROGEN 23 MG/DL (9-23); CALCIUM LEVEL 8.7 MG/DL (8.3-10.6); CARBON DIOXIDE LEVEL 31 MMOL/L (20-31); CHLORIDE LEVEL 100 MMOL/L (98-107); CREATININE FOR GFR 0.79 MG/DL (0.70-1.30); GLOMERULAR FILTRATION RATE > 60.0 (>35); GLUCOSE, FASTING 251 MG/DL (74-106); IRON (FE) 48 UG/DL (65-175); PERCENT SATURATION 18.7 % (19.7-50.0); SODIUM LEVEL 137 MMOL/L (136-145); TOTAL IRON BINDING CAPACITY 257 UG/DL (250-425); TOTAL PROTEIN 5.7 G/DL (5.7-8.2)
== END ==
LOC: M SFHCCLAY 08:09
PROVIDERS: ATTEND Family Medicine
DX: C61 Malignant neoplasm of prostate (principal); D50.9 Iron deficiency anemia, unspecified; I48.0 Paroxysmal atrial fibrillation

== ENCOUNTER 2023-10-12 09:41 | Day surgery (SDC) | payer MEDICARE, OTHER ==
[~2023-10-12] VITALS: Ht 180.3 cm; Wt 87.0 kg
[~2023-10-12 09:41] MED LIST changes: +NS 1,000 ML IV ONE
[2023-10-12] MEDS ORDERED: propofoL 200 MG/20 ML VIAL As Ordered ONE (10:50)
[2023-10-12] MEDS ORDERED: LIDOCAINE 2% 100MG/5ML SDV (FOR ANES.) As Ordered ONE (10:50)
[2023-10-12 12:00] VITALS: BP 130/82; TEMP 97.3; O2SAT 95
== END 2023-10-12 12:06 | disposition home or self-care (01) ==
LOC: M OPP 09:41
PROVIDERS: ATTEND Surgery
DX: D12.2 Benign neoplasm of ascending colon (principal); K64.1 Second degree hemorrhoids; K57.30 Diverticulosis of large intestine without perforation or abscess without bleeding; D50.9 Iron deficiency anemia, unspecified; K22.89 Other specified disease of esophagus; K29.70 Gastritis, unspecified, without bleeding; K31.89 Other diseases of stomach and duodenum; K44.9 Diaphragmatic hernia without obstruction or gangrene; I48.91 Unspecified atrial fibrillation; E11.9 Type 2 diabetes mellitus without complications; I25.9 Chronic ischemic heart disease, unspecified; Z79.01 Long term (current) use of anticoagulants; Z79.02 Long term (current) use of antithrombotics/antiplatelets; Z79.1 Long term (current) use of non-steroidal anti-inflammatories (NSAID); Z79.84 Long term (current) use of oral hypoglycemic drugs; Z79.899 Other long term (current) drug therapy

== ENCOUNTER → 2023-10-24 | Outpatient (REF) | payer MEDICARE, OTHER ==
[~2023-10-24] MED LIST changes: -NS 1,000 ML IV ONE
[2023-10-24 12:43] LABS: BLOOD UREA NITROGEN 26 MG/DL (9-23); CALCIUM LEVEL 8.8 MG/DL (8.3-10.6); CARBON DIOXIDE LEVEL 30 MMOL/L (20-31); CHLORIDE LEVEL 101 MMOL/L (98-107); CREATININE FOR GFR 0.85 MG/DL (0.70-1.30); GLOMERULAR FILTRATION RATE > 60.0 (>35); GLUCOSE, FASTING 141 MG/DL (74-106); SODIUM LEVEL 137 MMOL/L (136-145)
== END ==
LOC: M LABSMT 07:22
PROVIDERS: ATTEND Urology
DX: C61 Malignant neoplasm of prostate (principal)

== ENCOUNTER → 2023-11-02 | Outpatient (CLI) | payer MEDICARE, OTHER ==
[~2023-11-02] MED LIST changes: +ISOVUE-370 76% 100ML VIAL As Ordered ONE
== END ==
LOC: M RAD 08:55
PROVIDERS: ATTEND Urology
DX: C61 Malignant neoplasm of prostate (principal)
CPT/HCPCS: 74177; 78306; A9503; Q9967

== ENCOUNTER → 2024-01-10 | Outpatient (REF) | payer MEDICARE, OTHER ==
[~2024-01-10] MED LIST changes: -ISOVUE-370 76% 100ML VIAL As Ordered ONE
== END ==
LOC: M SFHCCLAY 07:41
PROVIDERS: ATTEND Urology
DX: C61 Malignant neoplasm of prostate (principal)

== ENCOUNTER → 2024-02-08 | Outpatient (REF) | payer MEDICARE, OTHER ==
[2024-02-08 12:37] LABS: CREATININE, URINE 100.4 MG/DL; MAU/CREAT RATIO 3.9 MCG/MG (0.0-30.0)
[2024-02-08 12:38] LABS: ALBUMIN 3.5 G/DL (3.2-5.2); ALKALINE PHOSPHATASE 63 U/L (40-129); ALT/SGPT 16 U/L (7.0-40); AST/SGOT 15 U/L (<34); BILIRUBIN,TOTAL 0.7 MG/DL (0.3-1.2); BLOOD UREA NITROGEN 20 MG/DL (9-23); CALCIUM LEVEL 9.3 MG/DL (8.3-10.6); CARBON DIOXIDE LEVEL 32 MMOL/L (20-31); CHLORIDE LEVEL 103 MMOL/L (98-107); CHOLESTEROL LEVEL 145 MG/DL (<200); CHOLESTEROL RISK RATIO 4.02 (<5); GLOMERULAR FILTRATION RATE > 60.0 (>35); GLUCOSE, FASTING 135 MG/DL (74-106); LDL CHOLESTEROL 84.8 MG/DL (<100); POTASSIUM SERUM 4.4 MMOL/L (3.5-5.1); SODIUM LEVEL 138 MMOL/L (136-145); TOTAL PROTEIN 6.3 G/DL (5.7-8.2); TRIGLYCERIDES LEVEL 121 MG/DL (<150)
[2024-02-08 12:43] LABS: FREE T4 1.36 NG/DL (0.89-1.76); THYROID STIMULATING HORMONE 1.625 uIU/ML (0.55-4.78)
[2024-02-08 12:57] LABS: HEMOGLOBIN A1c 6.4 % (4.0-6.0)
== END ==
LOC: M SFHCCLAY 07:41
PROVIDERS: ATTEND Family Medicine
DX: E11.40 Type 2 diabetes mellitus with diabetic neuropathy, unspecified (principal); I25.10 Atherosclerotic heart disease of native coronary artery without angina pectoris

== ENCOUNTER → 2024-05-16 | Outpatient (REF) | payer MEDICARE, OTHER | LOC: M SFHCCLAY 07:44 | PROVIDERS: ATTEND Urology | DX: C61 Malignant neoplasm of prostate (principal) ==

== ENCOUNTER → 2024-08-06 | Outpatient (REF) | payer MEDICARE, OTHER ==
[2024-08-06 13:04] LABS: HEMATOCRIT 44.6 % (42.0-52.0); MEAN CORPUSCULAR HGB CONC 33.6 g/dl (32.0-36.5); MEAN CORPUSCULAR VOLUME 92.1 fl (80.0-96.0); PLATELET COUNT, AUTOMATED 188 10^3/uL (150-450); RED BLOOD COUNT 4.84 10^6/uL (4.30-6.10); WHITE BLOOD COUNT 8.8 10^3/uL (4.0-10.0)
[2024-08-06 13:18] LABS: HEMOGLOBIN A1c 6.6 % (4.0-6.0)
[2024-08-06 13:30] LABS: FERRITIN 53.2 NG/ML (10.5-307.3)
[2024-08-06 13:33] LABS: ALBUMIN 3.9 G/DL (3.2-5.2); BILIRUBIN,TOTAL 0.7 MG/DL (0.3-1.2); CALCIUM LEVEL 9.1 MG/DL (8.3-10.6); CHOLESTEROL RISK RATIO 4.11 (<5); CREATININE FOR GFR 0.89 MG/DL (0.70-1.30); GLOMERULAR FILTRATION RATE 83.5 (>35); HDL CHOLESTEROL 39.9 MG/DL (>40); LDL CHOLESTEROL 80.1 MG/DL (<100); NON-HDL-C 124.1 MG/DL; PERCENT SATURATION 38.9 % (19.7-50.0); POTASSIUM SERUM 4.2 MMOL/L (3.5-5.1); TOTAL PROTEIN 6.5 G/DL (5.7-8.2)
== END ==
LOC: M SFHCCLAY 07:27
PROVIDERS: ATTEND Physician Assistant
DX: I10 Essential (primary) hypertension (principal); D50.9 Iron deficiency anemia, unspecified; E11.40 Type 2 diabetes mellitus with diabetic neuropathy, unspecified

== ENCOUNTER → 2024-08-22 | Outpatient (CLI) | payer MEDICARE, OTHER | LOC: M PLAIMG 09:23 | PROVIDERS: ATTEND Physician Assistant | DX: R91.1 Solitary pulmonary nodule (principal) ==

== ENCOUNTER → 2024-11-12 | Outpatient (REF) | payer MEDICARE, OTHER | LOC: M SFHCCLAY 07:15 | PROVIDERS: ATTEND Urology | DX: C61 Malignant neoplasm of prostate (principal) ==

== ENCOUNTER → 2024-12-21 | Outpatient (CLI) | payer MEDICARE, OTHER | LOC: M PLALAB 11:24 | PROVIDERS: ATTEND Urology | DX: C61 Malignant neoplasm of prostate (principal) ==

== ENCOUNTER → 2025-02-05 | Outpatient (REF) | payer MEDICARE, OTHER ==
[2025-02-05 17:38] LABS: PLATELET COUNT, AUTOMATED 215 10^3/uL (150-450)
[2025-02-05 17:52] LABS: ESTIMATED AVERAGE GLUCOSE 143.0 MG/DL (60-110)
[2025-02-05 17:55] LABS: CREATININE, URINE 139.5 MG/DL; IRON (FE) 88.0 UG/DL (65-175)
[2025-02-05 17:56] LABS: MALB URINE SIEMENS 44.0 MG/L; MAU/CREAT RATIO 31.5 MCG/MG (0.0-30.0); PERCENT SATURATION 30.7 % (19.7-50.0)
[2025-02-05 17:57] LABS: ALT/SGPT 15.0 U/L (7.0-40); AST/SGOT 17.0 U/L (<34); CALCIUM LEVEL 8.9 MG/DL (8.3-10.6); CARBON DIOXIDE LEVEL 33.0 MMOL/L (20-31); CHLORIDE LEVEL 99.0 MMOL/L (98-107); CHOLESTEROL LEVEL 150.0 MG/DL (<200); CHOLESTEROL RISK RATIO 3.79 (<5); CREATININE FOR GFR 0.87 MG/DL (0.70-1.30); GLOMERULAR FILTRATION RATE 83.5 (>35); LDL CHOLESTEROL 68.1 MG/DL (<100); NON-HDL-C 110.5 MG/DL; POTASSIUM SERUM 4.5 MMOL/L (3.5-5.1); SODIUM LEVEL 140.0 MMOL/L (136-145); TRIGLYCERIDES LEVEL 212.0 MG/DL (<150)
[2025-02-05 17:59] LABS: VITAMIN B12 LEVEL 580.0 PG/ML (211-911)
== END ==
LOC: M SFHCCLAY 11:47
PROVIDERS: ATTEND Physician Assistant
DX: Z00.00 Encounter for general adult medical examination without abnormal findings (principal); E11.40 Type 2 diabetes mellitus with diabetic neuropathy, unspecified; H91.90 Unspecified hearing loss, unspecified ear; M48.061 Spinal stenosis, lumbar region without neurogenic claudication; I25.10 Atherosclerotic heart disease of native coronary artery without angina pectoris; I10 Essential (primary) hypertension; R26.89 Other abnormalities of gait and mobility; I48.20 Chronic atrial fibrillation, unspecified; M79.10 Myalgia, unspecified site; N52.9 Male erectile dysfunction, unspecified; M21.372 Foot drop, left foot; F41.8 Other specified anxiety disorders; R91.1 Solitary pulmonary nodule; C61 Malignant neoplasm of prostate; E53.8 Deficiency of other specified B group vitamins

== ENCOUNTER → 2025-03-13 | Outpatient (CLI) | payer MEDICARE, OTHER | LOC: M RAD 13:27 | PROVIDERS: ATTEND Physician Assistant | DX: R91.8 Other nonspecific abnormal finding of lung field (principal) ==